=== PATIENT | female | born 1950 | race Caucasian/White ===

== ENCOUNTER 2017-10-13 20:34 | Emergency (ER) | payer OTHER ==
[2017-10-13] MEDS ORDERED: TDAP ADULT 0.5 ML INJ (BOOSTRIX) IM ONE (21:11)
--- NOTE | 2017-10-13 21:17 | EDPHY ---
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 She landed on an [employer]. This stuck into her left lateral feng. The bleeding is controlled. She has mild bruising and moderate discomfort at that location. She also has mild left buttock pain. She is able to ambulate. She has no numbness or tingling. She did not strike her head. She has no back pain. REVIEW OF SYSTEMS: My complete review of systems is negative except as mentioned in the HPI. Past Medical/Surgical History: Negative Smoking Status: Never smoked Physical Exam: Vitals noted GENERAL: Well-appearing, in no acute distress, alert. HEAD: No evidence of trauma. EYES: PERRLA, normal to inspection. ENT: Normal external examination. NECK: The C-spine is nontender. NEXUS criteria is negative (no midline tenderness, no distracting injury, no altered mental status, no recent alcohol use, no focal neurologic deficit). RESPIRATORY: Clear to auscultation bilaterally, no rales, rhonchi or wheezing. CVS: Normal perfusion. ABDOMEN: Soft, nontender. Pelvis: Stable. No tenderness palpation. Hips full range of motion. BACK: Normal to inspection, no spinal tenderness, no spinal step off, no notable bruising or abrasions. SKIN: Normal color, warm, dry. No pallor or diaphoresis. EXTREMITIES: Right upper extremity: Atraumatic. No visible signs of trauma. No tenderness palpation. Neurovascular intact distally. Left upper extremity: Atraumatic. No visible signs of trauma. No tenderness palpation. Neurovascular intact distally. Right lower extremity: Atraumatic. No visible signs of trauma. No tenderness palpation. Neurovascular intact distally. Left lower extremity: Patient has bruising over her left buttock. There is no palpable deformity. No crepitus. Full range of motion of the hip. Patient also has small puncture wound to the left lateral calf. Bleeding is controlled. There is a surrounding ecchymosis. The compartment is soft. NEURO/PSYCH: Alert and oriented x 3, GCS 15, normal mood and affect, normal motor sensory exam. Constitutional: Initial Vital Signs Temperature (C) 36.8 C 10/13/17 20:37 Heart Rate 90 10/13/17 20:37 Respiratory Rate 16 10/13/17 20:37 Blood Pressure 132/75 H 10/13/17 20:37 O2 Sat (%) 96 10/13/17 20:37 O2 Delivery Mode Room Air Allergies/Adverse Reactions: No Known Allergies Allergy (Unverified 10/13/17 20:39) Home Medications: Medication Instructions Recorded NK [No Known Home Meds] 10/13/17 Medical Decision Making - Diagnostics Imaging Results: Imaging Impressions Hip X-Ray 10/13/17 21:05 Impression: No acute abnormality seen about the pelvis with attention left hip. ED Course/Re-evaluation: In the emergency department I discussed possible etiologies with the patient. I answered all her questions. Patient had her left leg wound cleaned. Ice was applied to left lateral calf. An x-ray of the left hip was ordered. The patient was given a tetanus update. I do not feel the patient needs suture repair of her wound. Left hip x-ray: Please refer the dictated report. No acute disease noted. I discussed the results with the patient. I answered all her questions. Patient was given warnings prior to leaving. She will return with worsening symptoms. Differential Diagnosis: My differential includes but is not limited to hip fracture, hip contusion, buttock contusion, lower leg contusion, compartment syndrome, laceration, puncture wound, foreign body - Data Points Medications Given: Discontinued Medications Diphtheria/Tetanus/Acell Pertussis (Boostrix) 0.5 ml IM .ONCE ONE Stop: 10/13/17 21:12 Last Admin: 10/13/17 21:14 Dose: 0.5 ml Departure - Departure Disposition: Home, Routine, Self-Care Clinical Impression: Abrasion Contusion Qualifiers: Encounter type: initial encounter Contusion area: pelvic area Qualified Code(s) : S30.0XXA - Contusion of lower back and pelvis, initial encounter Condition: Good Instructions: Hematoma (ED), Hip Contusion (ED), Abrasion (ED) Additional Instructions: Use ice and compression on your lower leg. Return with increasing swelling, pain, numbness or any other concerns. Referrals: Binu Tapia MD [Medical Doctor] - 5-7 days, if not improved
[2017-10-13 22:55] VITALS: BP 127/93
== END 2017-10-13 22:55 | disposition home or self-care (01) ==
DX: S30.0XXA Contusion of lower back and pelvis, initial encounter (principal); S81.832A Puncture wound without foreign body, left lower leg, initial encounter; Z23 Encounter for immunization; Y93.K9 Activity, other involving animal care; Y92.9 Unspecified place or not applicable